=== PATIENT | female | born 1995 | race Caucasian/White ===

== ENCOUNTER 2024-09-06 10:23 | Outpatient (OUT) | payer OTHER, SELFPAY ==
[2024-09-06 11:02] LABS: Hematocrit 38.6 % (36.0-48.0); Hemoglobin 12.8 g/dL (12.0-16.0); Immature Granulocytes Abs Auto 0.04 10^3/uL (0.00-0.03); Immature Granulocytes Pct Auto 0.4 % (0.0-0.5); Lymphocytes Absolute Auto 2.2 10^3/uL (1.2-3.8); Mean Corpuscular HGB Conc 33.2 g/dL (29.9-35.2); Mean Corpuscular Hemoglobin 32.4 pg (26.7-34.0); Mean Corpuscular Volume 97.7 fL (81.0-99.0); Platelet Count 286 10^3/uL (150-450); Red Blood Count 3.95 10^6/uL (4.20-5.40); White Blood Count 10.1 10^3/uL (4.0-11.0)
[2024-09-06 11:13] LABS: Cannabinoid Screen Urine POSITIVE (NEGATIVE); Methamphetamines Screen Urine NEGATIVE (NEGATIVE); Tricyclic Antidepressant Urine NEGATIVE (NEGATIVE)
[2024-09-07 05:07] LABS: Rubella Antibodies, IgG 1.74 index (Immune >0.99)
[2024-09-07 11:08] LABS: Rapid Plasma Reagin, Quant Non Reactive titer (NonRea<1:1)
[2024-09-10 16:11] LABS: Carboxy THC Conf, MS, UR 112 ng/mL (Cutoff=10)
== END 2024-09-06 10:24 | disposition home or self-care (01) ==
LOC: LAB 10:29
PROVIDERS: Visit Provider Obstetrics & Gynecology
DX: Z34.01 Encounter for supervision of normal first pregnancy, first trimester (principal); N92.6 Irregular menstruation, unspecified
CPT/HCPCS: 36415; 80307; 80349; 83036; 86592; 86762; 86803; 86850; 86900; 86901; 87086; 87340; 87389

== ENCOUNTER 2024-11-14 10:32 | Outpatient (OUT) | payer OTHER, SELFPAY ==
--- OUTSIDE RECORDS SUMMARY | 2024-10-03 10:10 | XMS_ITS | Encounter Summary ---
Author Organization [facility] Address [address] [place] [address] Care Team Providers Care Automation Design Engineer Name Role Phone Mariza Fierro MD Primary Care Provider +1- [phone] Reason for Visit * Reason Comments Routine Visit Encounter Details Date Type Department Care Team ([facility] Contact Info) Description 10/03/2024 10:10 AM EDT Routine [facility] So [facility] [address] [place] [address] Jeffrey Gleason DO [address] [facility] [address] Asha So, [facility] 19 weeks gestation of ([facility]); Second trimester ([facility]); Screening, , for anatomic survey ([facility]) Social History Tobacco Use Types Packs/Day Years [...] AM EDT Reason for Appointment: Patient ID: xOana Braga is a 29 y.o. female who [...] nursing note reviewed. Exam conducted with a chart snatcher present. Vitals: There is no height or weight on file to calculate BMI. BP: 120/76 Patient's last menstrual period was 05/23/2024. ASSESSMENT & PLAN ICD-10-CM 1. 19 weeks gestation of ([facility]) Z3A.19 POCT urinalysis dipstick manually resulted 2. Second trimester ([facility]) Z34.92 POCT urinalysis dipstick manually resulted 3. Screening, , for anatomic survey ([facility]) Z36.89 US OB 14+ weeks anatomy scan [...] or undercooked meat, and [facility]. Patient has been consulted regarding any further [...] AM EDT Routine [facility] [address] [place] [id number] Francy Pollack PA [address] [facility] [place] [address] documented as of this encounter Procedures Procedure Name Priority Date/Time Associated Diagnosis Comments POCT URINALYSIS DIPSTICK Routine 10/03/2024 10:19 AM EDT 19 weeks gestation of ([facility]) Second trimester ([facility]) documented in this encounter Results * US [...] II, MD, PHD at 13-Oct-2024 08:19:45 AM [facility] Procedure Note Christian Antunez MD - [...] signed by CHRISTIAN ANTUNEZ II, MD, PHD [id number] 08:19:45 AM [facility] us Jeffrey Gleason DO IM OB [...] Visit Diagnoses Diagnosis 19 weeks gestation of ([facility]) Second trimester ([facility]) state, incidental Screening, , for anatomic survey ([facility]) Encounter for anatomic survey Screening, , for anatomic survey ([facility]) Encounter for anatomic survey documented in this encounter Care Teams Automation Design Engineer Relationship Specialty Start Date End Date Mariza Fierro MD [address] [place] [address] PCP - General Internal Medicine 09/06/24 documented as of this encounter
--- OUTSIDE RECORDS SUMMARY | 2024-11-14 09:30 | XMS_ITS | Encounter Summary ---
Author Organization [facility] Address [address] [place] [address] Care Team Providers Care Business Development Intern Name Role Phone Mariza Fierro MD Primary Care Provider +1- [phone] Reason for Visit * Reason Comments Routine Visit Encounter Details Date Type Department Care Team (Latest Contact Info) Description 11/14/2024 9:30 AM EDT Routine [facility] [address] [facility] [address] Adele Salas, KARTIK [address] [place] [address] Third trimester ([facility]); 25 weeks gestation of ([facility]); Well woman exam with routine gynecological exam; [...] on file documented as of this encounter Plan of Treatment Upcoming Encounters Date Type Department Care Team (Late st Contact Info) Description 12/05/2024 9:50 AM EDT Routine [facility] [address] [facility] [place] [address] Francy Pollack PA [address] [place], [facility] Scheduled Orders Name Type Priority Associated Diagnoses [...] Routine 11/14/2024 10:31 AM EDT Third trimester ([facility]) documented in this encounter Results * POCT [...] this encounter Visit Diagnoses Diagnosis Third trimester ([facility]) state, incidental 25 weeks gestation of ([facility]) Well woman exam with routine gynecological exam Routine gynecological examination Exposure to STD Diabetes mellitus screening Screening for diabetes mellitus Skin infection Unspecified local infection of skin and subcutaneous tissue documented in this encounter Care Teams Business Development Intern Relationship Specialty Start Date End Date Mariza Fierro MD [address] [place] [phone] PCP - General Internal Medicine 09/06/24 documented as of this encounter
--- OUTSIDE RECORDS SUMMARY | 2024-11-14 10:36 | XMS_ITS | Encounter Summary ---
Author Organization [facility] Address [address] [place] [address] Care Team Providers Care Milk Delivery Driver Name Role Phone Mariza Fierro MD Primary Care Provider +1- [phone] Encounter Details Date Type Department Care Team (Late st Contact Info) Description 11/07/2024 Patient Outreach [facility] [address] [place] [address] Francy Ovalle LPN [address] [place] [address] Social History Tobacco Use Types Packs/Day Years [...] on file documented as of this encounter Functional Status * Over the past 2 weeks, how often have you been bothered by any of the following problems? Question Answer Date of Assessment Author Little interest or pleasure in doing things Not at all 11/07/2024 10:35 AM EDT Francy Ovalle LP N Feeling down, depressed, or hopeless Not at all 11/07/2024 10:35 AM EDT Francy Ovalle LP N Patient Health Questionnaire -2 Score 0 11/07/2024 10:35 AM EDT Francy Ovalle LP N documented as of this encounter Progress Notes * Francy Ovalle LPN - 11/07/2024 10:35 AM EDT Initial outreach. Pt agreed to monthly outreach. Pt feels baby moving, Appetite and sleep are adequate. Bowels are regular. Pt denies any depression or difficulty coping at this time. Pt denies any questions, concerns or needs today. Meds reviewed. documented in this encounter Plan of Treatment Upcoming Encounters Date Type Department Care Team (Late st Contact Info) Description 12/05/2024 9:50 AM EDT Routine [facility] [address] [place] [address] Francy Pollack PA [address] [place] [address] documented as of this encounter Visit Diagnoses Not on filedocumented in this encounter Care Teams Milk Delivery Driver Relationship Specialty Start Date End Date Mariza Fierro MD [address] [place] [address] PCP - General Internal Medicine 09/06/24 documented as of this encounter
--- OUTSIDE RECORDS SUMMARY | 2024-11-14 10:36 | XMS_ITS | Encounter Summary ---
Author Organization [facility] Address [address] [facility] [place] [address] Care Team Providers Care Brand Protection Manager Name Role Phone Mariza Fierro MD Primary Care Provider +1- [phone] Encounter Details Date Type Department Care Team (Late Contact Info) Description 11/14/2024 Bamboo flowsheet BETHEL SRINIVASAN [address] [facility] [place] [address] Adele Salas NP [address] [facility] [place] [address] Social History Tobacco Use Types Packs/Day Years [...] Encounters Date Type Department Care Team (Late Contact Info) Description 12/05/2024 9:50 AM EDT Routine [facility] [address] [facility] [place] [address] Francy Pollack PA [address] [facility] [address] [place], [place] [id number] documented as of this encounter Visit Diagnoses Not on filedocumented in this encounter Care Teams Brand Protection Manager Relationship Specialty Start Date End Date Mariza Fierro MD [address] [place] [address] PCP - General Internal Medicine 09/06/24 documented as of this encounter
--- OUTSIDE RECORDS SUMMARY | 2024-11-14 10:36 | XMS_ITS | Data Portability ---
Author Organization [place] - ZOE PRESSLEY MD, PHD, [facility] Address [address] [place] [address] Assessment No assessment recorded. Plan of Treatment Reminders Order Date Submit Date Provider Last Modified By Organization Details Last Modified Time Details Appointments None record ed. Lab rapid strep group A, throat 2018 019 [facility] Main Office, [address] [place], [address], 9 12:48:32 Referral None record ed. Procedures None record ed. Surgeries None record ed. Imaging None record ed. Medication Orders polymy yuri B sulfat e 10,000 unit-t rimeth oprim 1 mg/mL eye drops 2022 023 [facility] [id number], [address] [place], [address], 3 14:06:35 predni sone 20 mg tablet 2018 019 [facility], [address] [place], [address], 9 12:50:19 Patient TargetsNo targets recorded. Patient InstructionsNo instructions recorded. Reason for Referral None Reported. Results Created Date Observation Date Name Description Value Unit Range Abnormal Flag Note LastModifiedBy Organization Detail LastModifiedTime 06/08/19 19 06/07/2018 cultu re, throa t source Test not perfo rmed. Trans port devic e is not accep table for test reque sted. RECEI МАРИНА VCM VIRAL TRANS PORT. No colle ction date was recei марина. We have used the date the speci men was recei марина by [facility] as the colle ction date. If this is incor rect, pleas e conta ct us at [phone]. Not Available [facility] [address], [place], [address], 06/07/2018 01:37:55 06/06/19 19 06/05/2018 rapid strep group A, throa t Strep negati ve Not Available Main Office [address] [place], [address], 06/05/2018 12:09:57 Result Notes None recorded. Problems No Known Problems Medical Equipment None Reported. Allergies No known drug allergies Medications Name Sig Start Date Stop Date Status Note LastModified by Organization Details LastModified Time prednisone 20 mg tablet Take 2 tablets every day by oral route as directed for 3 days. 2018 active Not Available Not Available Not Avai lable polymyxin B sulfate 10,000 unit-trimeth oprim 1 mg/mL eye drops Instill 1 drop 4 times a day by ophthalmic route as directed for 10 days. active Not Available Not Available No t Available Vitals Date Recorded Body height Heart rate Body temperature Body mass index (BMI) Body weight Oxygen saturation Oxygen saturation in Arterial blood by Pulse oximetry Systolic And Diastolic Provider Name and Address Organization Details Last Updated DateTime 3 165.1 cm 97 /min 97.9 [degF] 22.5 kg/m2 54787.9 7 g 99 % 99 % 128/75 mm[Hg] Zoe coughlin MD [address] [place], [address], [facility] ZOE GONZALES MD, PHD 3 16:40:22 Date Recorded Body height Heart rate Respiratory rate Body temperature Body mass index (BMI) Body weight Oxygen saturation Oxygen saturation in Arterial blood by Pulse oximetry Systolic And Diastolic Provider Name and Address Organization Details Last Updated DateTime 9 167.64 cm 118 /min 16 /min 98.8 [degF] 23.6 kg/m2 57435.4 9 g 98 % 98 % 116/82 mm[Hg] elias spicer [place] - ZOE GOZNALES MD, PHD 9 11:58:57 Social History Question Answer Notes LastModified by Organizat ion Details LastModified Time Tobacco Smoking Status Never Smoker Not Available [facility] 12/24/2019 03:54:38 Are You Blind Or Do You Have Difficulty Seeing? No Information n ot available 04/22/2023 What Is Your Level Of Caffeine Consumption? None Information not available 04/22/2023 In The 14 Days Before Symptom Onset, Have You Had Close Contact With A Laboratory-confirm ed COVID-19 While That Case Was Ill? No Information n ot available 04/22/2023 In The 14 Days Before Symptom Onset, Have You Had Close Contact With A Person Who Is Under Investigation For COVID-19 While That Person Was Ill? No Information not available 04/22/2023 Have You Been To An Area Known To Be High Risk For COVID-19? No Information not available 04/22/2023 Are You Deaf Or Do You Have Serious Difficulty Hearing? No Information not available 04/22/2023 What Type Of Diet Are You Following? REGULAR Information n ot available 04/22/2023 Have You Processed Blood Or Body Fluids From An Ebola Virus Disease Patient Without Appropriate PPE? No Information not available 04/22/2023 Do You Reside In Or Have You Traveled To An Area Where Ebola Virus Transmission Is Active? No Information not available 04/22/2023 What Is The Highest Grade Or Level Of School You Have Completed Or The Highest Degree You Have Received? CG81055-7 Information not available 04/22/2023 Have There Been Any Changes To Your Family Or Social Situation? No Information no t available 04/22/2023 What Is The Fluoride Status Of Your Home? Fluoridated Information not available 04/22/2023 Have You Recently Or Are You Planning To Travel To An Area With Zika Virus? No Information not available 04/22/2023 What Was The Date Of Your Most Recent Tobacco Screening? 05/16/2022 Information not available 04/22/2023 Do You Have Any Pets? No Information not available 04/22/2023 Do You Have Smoke And Carbon Monoxide Detectors In Your Home? Yes Information not available 04/22/2023 Are You Passively Exposed To Smoke? No Information no t available 04/22/2023 Do You Have Difficulty Walking Or Climbing Stairs? No Information not available 04/22/2023 Sex: Unknown Functional Status Question Answer Note LastModified by Organizat ion Details LastModified Time Do you use any illicit or recreational drugs? No Information not available 04/22/2023 Do you or have you ever used any other forms of tobacco or nicotine? No Information not available 04/22/2023 Do you have access to reliable transportation? No Information not available 04/22/2023 Are you able to walk independently without assistance or assistive devices? YESWOREST Information not available 04/22/2023 Do you have difficulty doing errands alone? No Information not available 04/22/2023 Are you able to care for yourself independently? Yes Information not available 04/22/2023 Do you have difficulty dressing, bathing, grooming, or toileting? No Information not available 04/22/2023 Mental Status Question Answer Note LastModified by Organizat ion Details LastModified Time Do you feel stressed (tense, restless, nervous, or anxious, or unable to sleep at night)? QJ3994-6 Information not available 04/22/2023 Do you have difficulty concentrating, remembering or making decisions? No Information no t available 04/22/2023 Family History Relationship Description Onset Age of this Age Resolved Age Notes LastModified by Organization Details LastModified Time Father No current problems or disability [email or web address] Not available 06/05 11:59:49 Mother No current problems or disability [email or web address] Not available 06/05 11:59:49 Medical History No medical history recorded. Gynecological HistoryNo gynecological history recorded. Obstetrics History GPAL:G 0 P 0 0 0 0 Past Encounters Encounter ID Performer Location Encounter Start Date Encounter Closed Date Diagnosis/Indication Diagnosis SNOMED-CT Code Diagnosis ICD10 Code Diagnosis IMO Codes Diagnosis Note [id number] Zoe Chamberlain rn, MD Main Office [address] [place] [address] 06/05/2018 11:40:21 06/05/2018 12:28:54 Acute pharyngitis 361973156 J02.9 Cervical lymphadenopathy 844825212 R59.0 Acute tonsillitis 980178 08 J03.90 Tachycardia 2654150 R00. 0 [id number] Zoe Chamberlain rn, MD Main Office [address] [place] [address] 05/16/2022 13:38:55 05/16/2022 14:11:53 Nasal congestion 49212702 R09.81 Acute conjunctivitis 537 21565 H10.33 Sinus headache 5943454 R 51.9 Health Concerns Section Related Observation LastModified by Organization Detai ls LastModified Time None Recorded Concern Status LastModified by Organization Details LastModified Time None Recorded Advance Directives Directive None Recorded Payers Insurance Date Sequence Insurance Name Policy Number Policy Landeros Covered Member ID Landeros Member ID Guarantor Name 04/24/2023 1 [facility] - DOS ON OR AFTER 2022 (MEDICAID REPLACEMENT - HMO) [id number] Oxana Braga [id number] Justice Braga 05/16/2022 1 [facility] ([id number]) [id number] Oxana Braga [id number] Justice Braga Notes Date Note Type Note Provider Name and Address Organization Details Recorded Time 06/05/2018 text/html Sore ThroatRepor mary by PatientPatient is here today for a complaint of possible infected tonsils. She states her throat has hurt times three days. She states she has gargled with peroxide and with warm salt water. She states neither of these has helped. Patient presents to the office as a new patient for evaluation of a sore throat and edema with large tonsils without fever or nausea or vomiting. Patient states that it starts over the weekend and has continued to worsen. She tried to eat toast this morning and could not get it down. She has gargled with peroxide and warm salt water..No associated nausea and vomiting. Zoe Gonzales MD [address] [place], [address], [facility] ZOE GONZALES MD, PHD 06/06/2018 14:45:12 05/16/2022 text/html Red EyeReported by Patient Patient presents to the office as a new patient for evaluation of nasal congestion and bilateral red eyes with purulent discharge. She has not had any fevers, LH, dizziness, light sensitivity, visual changes, muscle weakness, SOB, CP, pressure, palpitations or edema. She has had a sinus headache. She has a negative PMH and surgical history. She has only been hospitalized for child . She has a regular diet. Zoe Gonzales MD [address] [place], [address], [facility] ZOE GONZALES MD, PHD 04/22/2023 13:57:57 OBGyn Episode No OBEpisode recorded.
--- OUTSIDE RECORDS SUMMARY | 2024-11-14 10:36 | XMS_ITS ---
Author Organization [facility] Address [address] [place] [address] Care Team Providers Care Lining Ironer Name Role Phone Mariza Fierro MD Primary Care Provider +1- [phone] [employer] [facility] [employer] ([facility]) Status:Enrolled (Active) Start date:11/04/2024 Enrollment date:11/07/2024 Enrollment reason:Identified by Health Plan Case Team Name Relationship Phone Francy Ovalle LPN(Responsible Staff) Licensed Prac tical Nurse [phone] Continued Care and Services Coordination
--- OUTSIDE RECORDS SUMMARY | 2024-11-14 10:36 | XMS_ITS | Encounter Summary ---
Author Organization [facility] Address [address] [place] [address] Care Team Providers Care Nurses Assistant Name Role Phone Mariza Fierro MD Primary Care Provider +1- [phone] Encounter Details Date Type Department Care Team (Late st Contact Info) Description 11/06/2024 Abstract [facility] [address] [place] [address] Francy Ovalle LPN [address] [place] [address] Social History Tobacco Use Types Packs/Day Years [...] LP N documented as of this encounter Plan of Treatment Upcoming Encounters Date Type Department Care Team (Late st Contact Info) Description 12/05/2024 9:50 AM EDT Routine BET[facility] SRINIVASAN [address] [place] [address] Francy Pollack PA [address] [facility] [place] [address] documented as of this encounter Visit Diagnoses Not on filedocumented in this encounter Care Teams Nurses Assistant Relationship Specialty Start Date End Date Mariza Fierro MD [address] [place] [address] PCP - General Internal Medicine 09/06/24 documented as of this encounter
--- OUTSIDE RECORDS SUMMARY | 2024-11-14 10:36 | XMS_ITS | Encounter Summary ---
Author Organization [facility] Address [address] [place] [address] Care Team Providers Care Speech Pathology Assistant Name Role Phone Mariza Fierro MD Primary Care Provider +1- [phone] Encounter Details Date Type Department Care Team (Latest Contact Info) Description 11/14/2024 Travel Social History Tobacco Use Types Packs/Day Years [...] Description 12/05/2024 9:50 AM EDT Routine [facility] [address] [facility] [place] [address] Francy Pollack PA [address] [place], [facility] documented as of this encounter Visit Diagnoses Not on filedocumented in this encounter Care Teams Speech Pathology Assistant Relationship Specialty Start Date End Date Mariza Fierro MD [address] [place] [address] PCP - General Internal Medicine 09/06/24 documented as of this encounter
--- OUTSIDE RECORDS SUMMARY | 2024-11-14 10:36 | XMS_ITS | Patient Health Record ---
Author Organization [facility] Address [address], [place] [address] Care Team Providers Care Wearing Apparel Shaker Name Role Phone Sylvie Turcios Unavailable [phone] Allergies No Known Allergies Reason For Referral No Information Medications Medication SIG (Take, Route, Frequency, Duration) Notes Start Date End Date Status Polymyxin B-Trimethoprim 80342-9.1 UNIT/ML Ophthalmic; Duration: 25 Days Not-Taking Social History Sex Assigned At : Social History Observation Description Sex Assigned At Female Problems Problem Type SNOMED Code ICD Code Onset Dates Problem Status W/U Status Risk Notes Problem Acute non-suppurative otitis media - serous (690633602) ACUTE SEROUS OTITIS MEDIA (H65.00) 2006 Active confirmed Problem Acute streptococcal pharyngitis (5909764038) Acute streptococcal pharyngitis (J02.0) 2007 Active confirmed Description:St reptococcal sore throat Problem Encounter for contraceptive management (V25.) (V25) 2006 Active confirmed Problem Bleeding unrelated to menstrual cycle (55444572) Bleeding unrelated to menstrual cycle (N92.1) 2008 Active confirmed Description:Me trorrhagia Problem Asthma (111071286) Asthma (J45.909) 2007 Active confirmed Problem Allergic rhinitis (42325657) Allergic rhinitis (J30.9) 2005 Active confirmed Problem Backache (997453390) Backache (724.5) (724.5) 2009 Active confirmed Problem Group health survey examination (Z02.89) 2009 Active confirmed Description:He alth examination of defined subpopulation Problem Acute bronchitis (disorder) (74536568) Bronchitis, acute (466.0) (466.0) 2006 Active confirmed Problem Menstrual disorder (447577648) Disorder of menstruation/ab normal bleeding (626.8) (626.8) 2006 Active confirmed Problem Gastroesophageal reflux disease (872925253) Reflux, esophageal (530.81) (530.81) 2005 Active confirmed Story:ASSESSME NT: controlled, Problem Cough (68517976) Cough (R05.9) 2007 Active confirmed Plan Of Treatment No Information Insurance Providers Payer Name Payer Address Payer Phone Subscriber Number Group Number Insured Name Patient Relationship to Insured Coverage Start Date Coverage End Date [employer] [facility] [address] [address] [place] [address] [id number] [facility] Oxana Braga Self - patient is the insured 2 DMedicaid [employer] after [place] [employer] [address] [place], [place] [id number] Oxana Braga Self - patient is the insured 2 Medical (General) History Medical History History ICD Code CHILDHOOD DISEASES/ILLNESSES : Positive history for chicken pox, ProblemStatus: Active, , MEDICAL: Asthma, ProblemStatus: Active, , MEDICAL: Bronchitis, ProblemStatus: Acti ve, , MEDICAL: Gastroesophageal reflux disease , ProblemStatus: Active, ,
--- OUTSIDE RECORDS SUMMARY | 2024-11-14 10:36 | XMS_ITS | Clinical Summary ---
Author Organization [facility] Healthcare Address [address] [place] [address] Care Team Providers Care Glass Cleaning Machine Tender Name Role Phone Mariza Fierro MD Primary Care Provider +1- [phone] Allergies No known active allergies Medications Vit-Fe Fumarate-FA ( VITAMIN PO) Take by mouth Active cephalexin (Keflex) 500 MG capsuleIndicati ons:Skin infection Take 1 capsule (500 mg) by mouth in the morning and 1 capsule (500 mg) before bedtime. Do all this for 10 days. 20 capsule 11/14/2024 Active Encounters Date Type Department Care Team Description 11/14/2024 9:30 [place] [address] Adele Salas NP Third trimester ([facility]); 25 weeks gestation of ([facility]); Well woman exam with routine gynecological exam; Exposure to STD; Diabetes mellitus screening; Skin infection 11/14/2024 Bamboo flowsheet BETHEL SRINIVASAN [address] [place] [address] Adele Salas NP 11/14/2024 Travel 11/07/2024 Patient Outreach [facility] [address] [place] [address] Francy Ovalle LPN 11/06/2024 Abstract [facility] [address] [place] [address] Francy Ovalle LPN 10/10/2024 8:30 AM EDT [place] [address] Screening, , for anatomic survey ([facility]) 10/03/2024 10:10 [place] [address] Jeffrey Gleason DO 19 weeks gestation of ([facility]); Second trimester ([facility]); Screening, , for anatomic survey ([facility]) 10/03/2024 [place] [address] Jeffrey Gleason DO 09/06/2024 10:00 AM ED[place] [address] GA: 15w1d 09/06/2024 9:30 AM EDT [place] [address] Missed menses 09/06/2024 [place] [address] Jeffrey Gleason DO 09/06/2024 Clinisync Result Encounter [facility] External Department Unsolicited Jeffrey Gleason DO from Last 3 Months Social History Tobacco Use Types Packs/Day Years [...] on file Sexual Orientation Not on file Last Filed Vital Signs Vital Sign Reading Time Taken Comments Blood Pressure 120/76 10/03/2024 10:12 AM EDT Pulse - - Temperature - - Respiratory Rate - - Oxygen Saturation - - Inhaled Oxygen Concentration - - Weight 66.2 kg (146 lb) 10/03/2024 10:12 AM EDT Height - - Body Mass Index - - Plan of Treatment Upcoming Encounters Date Type Department Care Team (Late st Contact Info) Description 12/05/2024 9:50 AM EDT Routine [facility] [address] [place] [address] Francy Pollack PA [address] [place] [address] Procedures Procedure Name Priority Date/Time Associated Diagnosis Comments POCT URINALYSIS DIPSTICK Routine 11/14/2024 10:31 AM EDT Third trimester ([facility]) US OB 14+ WEEKS ANATOMY SCAN Routine 10/10/2024 9:38 AM EDT Screening, , for anatomic survey ([facility]) CULTURE, URINE, ROUTINE Routine 10/07/2024 8:14 AM EDT Missed menses POCT URINALYSIS DIPSTICK Routine 10/03/2024 10:19 AM EDT 19 weeks gestation of ([facility]) Second trimester ([facility]) HBSAG SCREEN Routine 09/06/2024 10:40 AM EDT RAPID PLASMA REAGIN, QUANT Routine 09/06/2024 10:40 AM EDT HIV AB/P24 AG WITH REFLEX Routine 09/06/2024 10:40 AM EDT HCV ANTIBODY RFX TO QUANT PCR Routine 09/06/2024 10:40 AM EDT ALL RUBELLA IGG AB Routine 09/06/2024 10 :40 AM EDT ALL TYPE AND SCREEN Routine 09/06/2024 1 0:40 AM EDT ALL CBC WITH AUTO DIFF Routine 09/06/2024 10:40 AM EDT MLR HEMOGLOBIN A1C Routine 09/06/2024 10 :40 AM EDT CANNABINOID CONF, MS, UR Routine 09/06/2024 10:33 AM EDT TBH DRUG SCREEN RAPID (URINE) Routine 09/06/2024 10:33 AM EDT POCT URINALYSIS DIPSTICK Routine 09/06/2024 9:52 AM EDT Missed menses POCT , URINE Routine 09/06/2024 9:52 AM EDT Missed menses US OB LIMITED 1+ FETUSES Routine 09/06/2024 9:46 AM EDT Missed menses from Last 3 Months Results * POCT urinalysis dipstick manually resulted (11/14/2024 10:31 AM EDT) Only the most recent of3 resultswithin the time period is included. Color, UA Yellow Clarity, UA Clear Glucose, [...] OF CARE TEST ENTER/EDIT ORDERABLES Final Result * US OB 14+ weeks anatomy scan [...] II, MD, PHD at 13-Oct-2024 08:19:45 AM [facility] Procedure Note Christian Antunez MD - [...] signed by CHRISTIAN ANTUNEZ II, MD, PHD 08:19:45 AM [facility] us Jeffrey Victorino DO IMG OB US PROCEDURES Final Resul t * Urine culture (10/07/2024 8:14 AM EDT) Urine Urine specimen obtained by clean catch procedure / Unknown [employer] [facility] MICROBIOLOGY - GENERAL ORDER ROSS Final Result Performing Organization Address City/[facility]/ZIP Co de Phone Number EXTERNAL LAB * HBSAG SCREEN (09/06/2024 10:40 AM EDT) Pathologist [facility] HBSAG SCREEN Negative Negative [facility] Comment: Performed at: [address] [id number] Soaping Department Supervisor: Raheel West PhD, Phone: [phone] 09/06/2024 10:4 0 AM EDT 09/06/2024 10:43 AM EDT Narrative [facility] - 09/07/2024 11:08 AM EDT [employer] DO LAB BLOOD ORDERABLES Final Resul t Performing Organization Address City/[facility] Co de Phone Number [facility] * RAPID PLASMA REAGIN, QUANT (09/06/2024 10:40 AM EDT) Pathologist [facility] RAPID PLASMA REAGIN, QUANT Non Reactive NonRea<1: 1 titer [facility] Comment: Please Note: This test does not meet current guidelines for screening and diagnosis of syphilis. This test is intended for following treatment response in patients being treated for syphilis infection. To screen for syphilis infection, a reflex cascade that includes both RPR and a treponema-specific assay should be utilized, such as Treponema pallidum (Syphilis) Screening [place] (147324) or Rapid Plasma Reagin (RPR) Test With Reflex to Quantitative RPR and Confirmatory Treponema pallidum Antibodies (317925). Performed at: [address] [id number] Soaping Department Supervisor: Raheel West PhD, Phone: [phone] 09/06/2024 10:4 0 AM EDT 09/06/2024 10:43 AM EDT Narrative [facility] - 09/07/2024 11:08 AM EDT RENTISHy Victorino DO LAB BLOOD ORDERABLES Final Resul t Performing Organization Address [facility] Co de Phone Number [facility] * HIV AB/P24 AG WITH REFLEX (09/06/2024 10:40 AM EDT) Pathologist [facility] HIV AB/P24 AG SCREEN Non Reactive Non Reactive [facility] Comment: HIV-1/HIV-2 antibodies and HIV-1 p24 antigen were NOT detected. There is no laboratory evidence of HIV infection. HIV Negative Performed at: [facility] [address] [id number] Soaping Department Supervisor: Raheel West PhD, Phone: [phone] 09/06/2024 10:4 0 AM EDT 09/06/2024 10:43 AM EDT Narrative [facility] - 09/07/2024 5:07 AM EDT [employer] DO LAB BLOOD ORDERABLES Final Resul t Performing Organization Address [facility] de Phone Number [facility] * HCV ANTIBODY RFX TO QUANT PCR (09/06/2024 10:40 AM EDT) [facility] HCV AB Non Reactive Non Reactive [facility] INTERPRETATION: Comment . [facility] Comment: Not infected with HCV unless early or acute infection is suspected (which may be delayed in an immunocompromised individual), or other evidence exists to indicate HCV infection. 09/06/2024 10:4 0 AM EDT 09/06/2024 10:43 AM EDT Narrative [facility] - 09/07/2024 5:07 AM EDT [employer] DO LAB BLOOD ORDERABLES Final Resul t Performing Organization Address [facility] de Phone Number [facility] * MLR HEMOGLOBIN A1C (09/06/2024 10:40 AM EDT) [facility] GLYCOHEMOGLOBIN A1C 5.1 4.5 - 6.2 % [facility] Comment: ADA RECOMMENDED LIMIT 4.0 - 6.0 ADA THERAPEUTIC TARGET < 7.0 ACTION SUGGESTED > 7.0 ESTIMATED AVERAGE GLUCOSE 100 mg/dL TB 09/06/2024 10:4 0 AM EDT 09/06/2024 10:43 AM EDT Narrative [facility] - 09/06/2024 10:56 AM EDT Jeffrey Victorino DO CLINISYNC Final Result Performing Organization Address City/[facility]/ZIP Co de Phone Number [facility] * ALL TYPE AND SCREEN (09/06/2024 10:40 AM EDT) Pathologist [facility] BLOOD TYPE O Positive TB ANTIBODY SCREEN NEGATIVE TB 09/06/2024 10:4 0 AM EDT 09/06/2024 10:43 AM EDT Narrative [facility] - 09/06/2024 11:56 AM EDT [facility] , Jeffrey Victorino DO CLINISYNC Final Result Performing Organization Address [facility] Co de Phone Number [facility] * ALL RUBELLA IGG AB (09/06/2024 10:40 AM EDT) Pathologist [facility] RUBELLA ANTIBODIES, IGG 1.74 Immune >0.99 index TB Comment: Non-immune <0.90 Equivocal 0.90 - 0.99 Immune >0.99 Performed at: [address] [id number] Soaping Department Supervisor: Raheel West PhD, Phone: [phone] 09/06/2024 10:4 0 AM EDT 09/06/2024 10:43 AM EDT Narrative [facility] - 09/07/2024 5:07 AM EDT Jeffrey Victorino DO CLINIS[facility]NC Final Result Performing Organization Address [facility]/ZIP Co de Phone Number [facility] * (ABNORMAL) ALL CBC WITH AUTO DIFF (09/06/2024 10:40 AM EDT) Pathologist [facility] WBC 10.1 4.0 - 11.0 10 3/uL TBH TBH RBC 3.95(L) 4.20 - 5.40 10 6/uL TBH TBH HGB 12.8 12.0 - 16.0 g/dL TBH TBH HCT 38.6 36.0 - 48.0 % TBH TBH MCV 97.7 81.0 - 99.0 fL TBH TBH MCH 32.4 26.7 - 34.0 pg TBH TBH MCHC 33.2 29.9 - 35.2 g/dL TBH TBH RDW 12.4 11.0 - 15.0 % TBH TBH PLT 286 150 - 450 10 3/uL TBH TBH MPV 9.3(L) 9.5 - 13.5 fL TBH NEUTROPHILS PERCENT AUTO 67.5 43.0 - 75.0 % TBH LYMPHOCYTES PERCENT AUTO 21.5 20.5 - 60.0 % TBH MONOCYTES PERCENT AUTO 9.3 1.7 - 12.0 % TBH TBH EO % 0.9 0.9 - 7.0 % TBH BASOPHILS PERCENT AUTO 0.4 0.2 - 2.0 % TBH IMMATURE GRANULOCYTES PCT AUTO 0.4 0.0 - 0.5 % TBH NEUTROPHILS ABSOLUTE AUTO 6.8(H) 1.4 - 6.5 10 3/uL TBH LYMPHOCYTES ABSOLUTE AUTO 2.2 1.2 - 3.8 10 3/uL TBH MONOCYTES ABSOLUTE AUTO 0.9(H) 0.3 - 0.8 10 3/uL TBH TBH EO # 0.1 0.0 - 0.7 10 3/uL TBH BASOPHILS ABSOLUTE AUTO 0.0 0.0 - 0.1 10 3/uL TBH IMMATURE GRANULOCYTES ABS AUTO 0.04(H) 0.00 - 0.03 10 3/uL TBH 09/06/2024 10:4 0 AM EDT 09/06/2024 10:43 AM EDT Narrative [facility] - 09/06/2024 11:03 AM EDT us Jeffrey Victorino DO CLINISYNC Final Result [facility] * (ABNORMAL) TB DRUG SCREEN RAPID (URINE) (09/06/2024 10:33 AM EDT) CANNABINOID SCREEN URINE POSITIVE(A) NEGATIVE TBH PHENCYCLIDINE SCREEN URINE NEGATIVE NEGATIVE TBH COCAINE SCREEN URINE NEGATIVE NEGATIVE TBH METHAMPHETAMINES SCREEN URINE NEGATIVE NEGATIVE TBH OPIATE SCREEN URINE NEGATIVE NEGATIVE TBH AMPHETAMINE SCREEN URINE NEGATIVE NEGATIVE TBH BENZODIAZEPINES SCREEN URINE NEGATIVE NEGATIVE TBH TRICYCLIC ANTIDEPRESSANT URINE NEGATIVE NEGATIVE TBH METHADONE SCREEN URINE NEGATIVE NEGATIVE TBH BARBITURATES SCREEN URINE NEGATIVE NEGATIVE TBH OXYCODONE SCREEN URINE NEGATIVE NEGATIVE TBH BUPRENORPHINE SCREEN URINE NEGATIVE NEGATIVE TBH Comment: DRUG CLASS TEST SYSTEM CUT-OFF CONCENTRATIONS ARE FOLLOWS: AMP (Amphetamine): 500 ng/mL BAR (Barbiturates): 200 ng/mL BZO (Benzodiazepines): 150 ng/mL BUP (Buprenorphine): 10 ng/mL STANLEY (Cocaine): 150 ng/mL mAMP (Methamphetamine): 500 ng/mL MTD (Methadone): 200 ng/mL OPI (Opiates): 100 ng/mL OXY (Oxycodone): 100 ng/mL PCP (Phencyclidine): 25 ng/mL THC (Cannabinoids): 50 ng/mL TCA (Trycyclic Antidepressants): 300 ng/mL 09/06/2024 10:3 3 AM EDT 09/06/2024 10:42 AM EDT Narrative [facility] - 09/06/2024 11:13 AM EDT Jeffrey Victorino DO CLINISYNC Final Result [facility] * (ABNORMAL) CANNABINOID CONF, MS, UR (09/06/2024 10:33 AM EDT) CANNABINOID Positive(A ) . TBH CARBOXY THC CONF, MS, UR 112 Cutoff=10 ng/mL TB Comment: Performed at: [facility] [address] [place], [place] [id number] Soaping Department Supervisor: María Myers PhD, Phone: [phone] 09/06/2024 10:3 3 AM EDT 09/06/2024 11:13 AM EDT Narrative [facility] - 09/10/2024 4:11 PM EDT us Jeffrey Victorino DO LAB BLOOD ORDERABLES Final Resul t [facility] * (ABNORMAL) POCT , urine manually resulted (09/06/2024 9:52 AM EDT) Preg Test, Ur Positive Negative Urine 09/06/2024 9:52 AM EDT us Jeffrey Victorino DO POINT OF CARE TEST ENTER/EDIT OR DERABLES Final Result * US OB limited 1+ fetuses (09/06/2024 9:46 AM EDT) Anatomical Region Laterality Modality Body Ultrasound 09/10/2024 10:5 9 AM EDT Impressions 09/10/2024 11:25 AM EDT Single, live intrauterine , current sonographic age of 14 weeks and 6 days, with an estimated date of delivery of March 01, 2025 * Estimated Weight (g) by Percentile is based upon an accurate estimated age based on last menstrual period. TRANSCRIBED BY: ELECTRONICALLY SIGNED BY: Jason Esquivel MD Narrative 09/10/2024 11:25 AM EDT FINDINGS: A single, live intrauterine is present with normal cardiac rate of 149 beats per minute. Normal activity and amniotic fluid volume. Morphology is grossly normal. [place] rump length, 9.3 cm, 15 weeks, 2 day. The cervix is long and closed The current sonographic age is 14 weeks and 6 days, based on the following measurements: BPD 2.6cm (14 weeks, 4 days) Head Circumference 10.3cm ( 14 weeks, 6 days) Abdominal Circumference 9.0cm ( 15 weeks, 1 days) Femur Length 1.5cm ( 14weeks, 3 days) Weight (g) by Percentile 18.9 % * These measurements result in an estimated date of delivery of March 01, 2025. The current estimated weight is 107 grams ( pound, 4 ounces). Procedure Note Jason Esquivel MD - 09/10/2024 FINDINGS: A single, live intrauterine is present with normal cardiacrate of 149 beats per minute. Normal activity and amniotic fluidvolume. Morphology is grossly normal. [place] rump length, 9.3 cm, 15weeks, 2 day. The cervix is long and closed The current sonographic age is14 weeks and 6 days, based on the following measurements: BPD 2.6cm (14 weeks, 4 days) Head Circumference 10.3cm ( 14 weeks, 6 days) Abdominal Circumference 9.0cm ( 15 weeks, 1 days) Femur Length 1.5cm ( 14weeks, 3 days) Weight (g) by Percentile 18.9 % * These measurements result in an estimated date of delivery of February. The current estimated weight is 107 grams ( pound, 4ounces). IMPRESSION: Single, live intrauterine , current sonographic age of 14 weeksand 6 days, with an estimated date of delivery of March 01, 2025 * Estimated Weight (g) by Percentile is based upon an accurateestimated age based on last menstrual period. TRANSCRIBED BY: ELECTRONICALLY SIGNED BY: Jason Esquivel MD us Jeffrey Gleason DO IMG OB US PROCEDURES Final Resul t from Last 3 Months Insurance [employer] Care Teams Glass Cleaning Machine Tender Relationship Specialty Start Date End Date Mariza Fierro MD [address] [place] [address] PCP - General Internal Medicine 09/06/24
--- OUTSIDE RECORDS SUMMARY | 2024-11-14 10:36 | XMS_ITS | Encounter Summary ---
Author Organization [facility] Address [address] [place] [address] Care Team Providers Care Knuckle Strap Sewer Name Role Phone Mariza Fierro MD Primary Care Provider +1- [phone] Encounter Details Date Type Department Care Team (Late Contact Info) Description 09/06/2024 Abstract [facility] [address] [place] [address] Jeffrey Gleason DO [address] [place], [facility] Social History Tobacco Use Types Packs/Day Years Used Date Smoking Tobacco: Never Assessed Estimated Date of Delivery Comme nts Yes [...] 9:50 AM EDT Routine BETHEL SRINIVAS[facility] [address] [place] [address] Francy Pollack PA [address] [place], [facility]11 documented as of this encounter Visit Diagnoses Not on filedocumented in this encounter Care Teams Knuckle Strap Sewer Relationship Specialty Start Date End Date Mariza Fierro MD [address] [place] [id number] PCP - General Internal Medicine 09/06/24 documented as of this encounter
[2024-11-14 10:46] LABS: Hematocrit 33.9 % (36.0-48.0); Hemoglobin 11.3 g/dL (12.0-16.0); Immature Granulocytes Abs Auto 0.04 10^3/uL (0.00-0.03); Immature Granulocytes Pct Auto 0.4 % (0.0-0.5); Lymphocytes Absolute Auto 1.7 10^3/uL (1.2-3.8); Mean Corpuscular HGB Conc 33.3 g/dL (29.9-35.2); Mean Corpuscular Hemoglobin 32.7 pg (26.7-34.0); Mean Corpuscular Volume 98.0 fL (81.0-99.0); Platelet Count 247 10^3/uL (150-450); Red Blood Count 3.46 10^6/uL (4.20-5.40); White Blood Count 10.1 10^3/uL (4.0-11.0)
== END 2024-11-14 10:33 | disposition home or self-care (01) ==
LOC: LAB 10:33
PROVIDERS: Visit Provider Nurse Practitioner Family
DX: Z13.1 Encounter for screening for diabetes mellitus (principal)
CPT/HCPCS: 36415; 83036; 85025; 87624; 88175

== ENCOUNTER 2024-11-14 19:21 | Outpatient (REF) | payer OTHER, SELFPAY ==
--- OUTSIDE RECORDS SUMMARY | 2024-10-03 10:10 | XMS_ITS | Encounter Summary ---
Author Organization [facility] Address [address] [place] [address] Care Team Providers Care Cmm Operator Name Role Phone Mariza Fierro MD Primary Care Provider +1- [phone] Reason for Visit * Reason Comments Routine Visit Encounter Details Date Type Department Care Team ([facility] Contact Info) Description 10/03/2024 10:10 AM EDT Routine [facility] [address] [place] [address] Jeffrey Gleason DO [address] [facility] [address] Asha So, [facility] 19 weeks gestation of ([facility]); Second trimester ([facility]); Screening, , for anatomic survey ([facility]) Social History Tobacco Use Types Packs/Day Years Used Date Smoking Tobacco: Never Assessed PHQ-2 Answer Date Recorded Patient Health Questionnaire-2 Score 0 11/07/2024 Estimated Date of Delivery Comme nts Yes 02/27/2025 Based on last me nstrual period of 05/23/2024 Sex and Gender Information Value Date Recorded Sex Assigned at Not on file Legal Sex Female 7:32 PM EDT Gender Identity Not on file Sexual Orientation Not on file documented as of this encounter Last Filed Vital Signs Vital Sign Reading Time Taken Comments Blood Pressure 120/76 10/03/2024 10:12 AM EDT Pulse - - Temperature - - Respiratory Rate - - Oxygen Saturation - - Inhaled Oxygen Concentration - - Weight 66.2 kg (146 lb) 10/03/2024 10:12 AM EDT Height - - Body Mass Index - - documented in this encounter Progress Notes * Rosalinda Mcclure LPN - 10/03/2024 10:10 AM EDT Reason for Appointment: Patient ID: Oxana Braga is a 29 y.o. female who presents for Routine Visit Patient presents today for Return OB appointment. MEDICATIONS No current outpatient medications ALLERGIES No Known Allergies PROBLEMS Active Ambulatory Problems Diagnosis Date Noted No Active Ambulatory Problems Resolved Ambulatory Problems Diagnosis Date Noted No Resolved Ambulatory Problems Past Medical History: Diagnosis Date History of miscarriage 10/2018 HISTORY PAST MEDICAL HISTORY SOCIAL HISTORY Past Medical History: Diagnosis Date History of miscarriage 10/2018 Social History Tobacco Use Smoking status: Not on file Smokeless tobacco: Not on file Substance Use Topics Alcohol use: Not on file Drug use: Not on file FAMILY HISTORY No family history on file. SURGICAL HISTORY History reviewed. No pertinent surgical history. REVIEW OF SYSTEMS Review of Systems: Review of Systems Constitutional: Negative. HENT: Negative. Eyes: Negative. Respiratory: Negative. Cardiovascular: Negative. Gastrointestinal: Negative. Genitourinary: Negative. Musculoskeletal: Negative. Skin: Negative. Neurological: Negative. All other systems reviewed and are negative. Hematological: Negative. Endocrine: Negative. Allergic/Immunologic: Negative. OBJECTIVE Objective: Physical Exam Constitutional: Appearance: Normal appearance. She is well-developed. Cardiovascular: Rate and Rhythm: Normal rate and regular rhythm. Pulmonary: Effort: Pulmonary effort is normal. Breath sounds: Normal breath sounds. Abdominal: General: Bowel sounds are normal. There is no distension. Palpations: Abdomen is soft. Tenderness: There is no abdominal tenderness. There is no guarding or rebound. Musculoskeletal: General: No swelling. Normal range of motion. Right lower leg: No edema. Left lower leg: No edema. Neurological: Mental Status: She is alert and oriented to person, place, and time. Skin: General: Skin is warm and dry. Psychiatric: Mood and Affect: Mood normal. Behavior: Behavior normal. Vitals and nursing note reviewed. Exam conducted with a whiskey filterer present. Vitals: There is no height or weight on file to calculate BMI. BP: 120/76 Patient's last menstrual period was 05/23/2024. ASSESSMENT & PLAN ICD-10-CM 1. 19 weeks gestation of ([facility]) Z3A.19 POCT urinalysis dipstick manually resulted 2. Second trimester ([facility]) Z34.92 POCT urinalysis dipstick manually resulted 3. Screening, , for anatomic survey ([facility]) Z36.89 US OB 14+ weeks anatomy scan New OB: Patient presents today for 1st time obstetrics appointment with provider. Patient is currently 19w0d . Patients history has been reviewed in great detail including any potential risks. Patient stated she currently has no complaints. Expectations throughout regarding labs, ultrasounds, and appointments have been discussed with the patient in detail. It was reiterated that the patient is to drink 6-8 glasses of water a day, eat 6 small meals a day, do not consume raw or undercooked meat, and [facility]. Patient has been consulted regarding any further do's and don'tsof . Patient voiced understanding and all questions and concerns were answered. Patient voiced that she is considering home . Orders Placed This Encounter Procedures US OB 14+ weeks anatomy scan POCT urinalysis dipstick manually resulted Follow Up: Patient is to return in 4 weeks for routine OB appointment. Documented by Rosalinda Mcclure LPN on behalf of: Jeffrey Gleason DO documented in this encounter Plan of Treatment Upcoming Encounters Date Type Department Care Team (Late st Contact Info) Description 12/05/2024 9:50 AM EDT Routine [facility] [address] [place] [id number] Francy Pollack PA [address] [facility] [address] documented as of this encounter Procedures Procedure Name Priority Date/Time Associated Diagnosis Comments POCT URINALYSIS DIPSTICK Routine 10/03/2024 10:19 AM EDT 19 weeks gestation of ([facility]) Second trimester ([facility]) documented in this encounter Results * US OB 14+ weeks anatomy scan (10/10/2024 9:38 AM EDT) Anatomical Region Laterality Modality Body Ultrasound 10/13/2024 8:21 AM EDT Narrative 10/13/2024 8:21 AM EDT EXAM: US OB 14+ WEEKS ANATOMY SCAN HISTORY: anatomy. COMPARISON: None available. TECHNIQUE: Two-dimensional transabdominal grayscale ultrasound imaging of the pelvis was performed. FINDINGS: Gestation: Single Presentation: Variable Cardiac Activity: 150 beats per minute Placental Location: Anterior with no sonographic abnormalities identified. Distance from Placental Tip to Cervix: 5.5 cm Cervical Length: 3.9 cm Amniotic Fluid: Appears adequate MEASUREMENTS: BPD: 4.0 cm EGA: 18 weeks 2 days HC: 16.0 cm EGA: 18 weeks 6 days AC: 14.2 cm EGA: 19 weeks 4 days FL: 3.0 cm EGA: 19 weeks 3 days HC/AC Ratio: 1.12 The gestational age by today's ultrasound is 19 weeks 0 days (+/- 9 days gestation). Estimated Weight: 289 grams, +/- 43 grams ( 0 lb 10 oz). Weight Percentile for gestational age: 16 % ANATOMY C-Spine: Unremarkable T-Spine: Unremarkable L-Spine: Unremarkable Sacrum: Unremarkable Four Chamber Heart: Unremarkable LVOT: Unremarkable RVOT: Unremarkable Stomach: Unremarkable Kidneys: Unremarkable Bladder: Unremarkable Diaphragm: Unremarkable Cord insertion: Unremarkable Cord vessels: Three Lateral Ventricles: Unremarkable Cerebellum: Unremarkable Cisterna Magna: Unremarkable Posterior Fossa: Unremarkable Right Femur: Unremarkable Left Femur: Unremarkable Right Tib/Fib: Unremarkable Left Tib/Fib: Unremarkable Right Rad/Ulnar: Unremarkable Left Rad/Ulnar: Unremarkable Right Humerus: Unremarkable Left Humerus: Unremarkable Nose/Lips: Unremarkable Profile: Unremarkable Orbits: Unremarkable IMPRESSION: 1. Single, live intrauterine gestation 20 weeks, 0 days by LMP. Today's ultrasound measurements correlate with a gestational age of 19 weeks 0 days. Estimated weight is 289 grams, +/- 43 grams ( 0 lb 10 oz) which correlates to 16 %. PATTIE by today's ultrasound is 03/06/2025. 2. Unremarkable ultrasound of the anatomy. Interpreted by: Electronically signed by CHRISTIAN ANTUNEZ II, MD, PHD at 13-Oct-2024 08:19:45 AM [facility] Procedure Note Christian Antunez MD - 10/13/2024 EXAM: US OB 14+ WEEKS ANATOMY SCAN HISTORY: anatomy. COMPARISON: None available. TECHNIQUE: Two-dimensional transabdominal grayscale ultrasound imaging ofthe pelvis was performed. FINDINGS: Gestation: Single Presentation: Variable Cardiac Activity: 150 beats per minute Placental Location: Anterior with no sonographic abnormalitiesidentified. Distance from Placental Tip to Cervix: 5.5 cm Cervical Length: 3.9 cm Amniotic Fluid: Appears adequate MEASUREMENTS: BPD: 4.0 cm EGA: 18 weeks 2 days HC: 16.0 cm EGA: 18 weeks 6 days AC: 14.2 cm EGA: 19 weeks 4 days FL: 3.0 cm EGA: 19 weeks 3 days HC/AC Ratio: 1.12 The gestational age by today's ultrasound is 19 weeks 0 days (+/- 9 daysgestation). Estimated Weight: 289 grams, +/- 43 grams ( 0 lb 10 oz). Weight Percentile for gestational age: 16 % ANATOMY C-Spine: Unremarkable T-Spine: Unremarkable L-Spine: Unremarkable Sacrum: Unremarkable Four Chamber Heart: Unremarkable LVOT: Unremarkable RVOT: Unremarkable Stomach: Unremarkable Kidneys: Unremarkable Bladder: Unremarkable Diaphragm: Unremarkable Cord insertion: Unremarkable Cord vessels: Three Lateral Ventricles: Unremarkable Cerebellum: Unremarkable Cisterna Magna: Unremarkable Posterior Fossa: Unremarkable Right Femur: Unremarkable Left Femur: Unremarkable Right Tib/Fib: Unremarkable Left Tib/Fib: Unremarkable Right Rad/Ulnar: Unremarkable Left Rad/Ulnar: Unremarkable Right Humerus: Unremarkable Left Humerus: Unremarkable Nose/Lips: Unremarkable Profile: Unremarkable Orbits: Unremarkable IMPRESSION: 1. Single, live intrauterine gestation 20 weeks, 0 days by LMP. Today'sultrasound measurements correlate with a gestational age of 19 weeks 0days. Estimated weight is 289 grams, +/- 43 grams ( 0 lb 10 oz)which correlates to 16 %. PATTIE by today's ultrasound is 03/06/2025. 2. Unremarkable ultrasound of the anatomy. Interpreted by: Electronically signed by CHRISTIAN ANTUNEZ II, MD, PHD [id number] 08:19:45 AM [facility] us Jeffrey Gleason DO IM OB US PROCEDURES Final Resul t * POCT urinalysis dipstick manually resulted (10/03/2024 10:19 AM EDT) Color, UA Yellow Clarity, UA Clear Glucose, UA Negative Negative - 2000(110) ++++ mg/dL Bilirubin, UA Negative Negative - 4(70) +++ mg/dL Ketones, UA Negative Negative - 160(16) ++++ mg/dL Spec Grav, UA 1.010 1 - 1.03 Blood, UA Negative Negative - 50 Moo/mcL pH, UA 7.0 5 - 9 Protein, UA Negative Negative - 2000(20) ++++ mg/dL Urobilinogen, UA 1.0 0.2 - 12 mg/dL Leukocytes, UA Negative Negative - 500+++ Sean/mcL Nitrite, UA Negative Negative - Positive Urine 10/03/2024 10:1 9 AM EDT Jeffrey Gleason DO POINT OF CARE TEST ENTER/EDIT OR DERABLES Final Result documented in this encounter Visit Diagnoses Diagnosis 19 weeks gestation of ([facility]) Second trimester ([facility]) state, incidental Screening, , for anatomic survey ([facility]) Encounter for anatomic survey Screening, , for anatomic survey ([facility]) Encounter for anatomic survey documented in this encounter Care Teams Cmm Operator Relationship Specialty Start Date End Date Mariza Fierro MD [address] [place] [address] PCP - General Internal Medicine 09/06/24 documented as of this encounter
--- OUTSIDE RECORDS SUMMARY | 2024-11-14 09:30 | XMS_ITS | Encounter Summary ---
Author Organization [facility] Address [address] [place] [address] Care Team Providers Care Electromechanical Technician Name Role Phone Mariza Fierro MD Primary Care Provider +1- [phone] Reason for Visit * Reason Comments Routine Visit Encounter Details Date Type Department Care Team (Latest Contact Info) Description 11/14/2024 9:30 AM EDT Routine [facility] [address] [address] [address] Adele Salas NP [address] [facility] [address] [place] [address] Third trimester ([facility]); 25 weeks gestation of ([facility]); Well woman exam with routine gynecological exam; Exposure to STD; Diabetes mellitus screening; Skin infection Social History Tobacco Use Types Packs/Day Years [...] on file documented as of this encounter Progress Notes * Adele Salas NP - 11/14/2024 9:30 AM EDT Reason for Appointment: Patient ID: Oxana Braga is a 29 y.o. female who presents for Routine Visit Patient presents today for Annual Exam., STD Check., and Return OB appointment. MEDICATIONS Current Outpatient Medications Medication Instructions Vit-Fe Fumarate-FA ( VITAMIN PO) Take by mouth ALLERGIES No Known Allergies PROBLEMS Active Ambulatory [...] No family history on file. SURGICAL HISTORY No past surgical history on file. REVIEW OF SYSTEMS Review of Systems: Review of Systems Constitutional: Negative. HENT: Negative. Eyes: Negative. Respiratory: Negative. Cardiovascular: Negative. Gastrointestinal: Negative. Genitourinary: Negative. Musculoskeletal: Negative. Skin: Negative. Complaints of drainage from belly button Neurological: Negative. All other systems reviewed and are negative. Hematological: Negative. Endocrine: Negative. Allergic/Immunologic: Negative. OBJECTIVE Objective: Physical Exam Constitutional: Appearance: Normal appearance. She is well-developed. Genitourinary: Vulva normal. Cardiovascular: Rate and Rhythm: Normal rate and [...] Skin: General: Skin is warm and dry. Comments: Serous drainage from umbilicus. No foul odor or erythema. Will treat with Keflex and cultures obtained Psychiatric: Mood and Affect: Mood normal. Behavior: Behavior normal. Vitals and nursing note reviewed. Exam conducted with a pharmacy district manager present. Vitals: There is no height or weight on file to calculate BMI. BP: Patient's last menstrual period was 05/23/2024. ASSESSMENT & PLAN ICD-10-CM 1. Third trimester ([facility]) Z34.93 POCT urinalysis dipstick manually resulted 2. 25 weeks gestation of ([facility]) Z3A.25 3. Well woman exam with routine gynecological exam Z01.419 Pap Smear HPV DNA probe, amplified 4. Exposure to STD Z20.2 SURESWAB(R) ADVANCED VAGINITIS PLUS, TMA CHLAMYDIA TRACHOMATIS (GENITO/STI) Neisseria gonorrhea DNA probe, direct 5. Diabetes mellitus screening Z13.1 CBC Glucose tolerance, 1 hour CBC Glucose tolerance, 1 hour Return OB/Annual Exam: Patient presents today for the annual exam/routine obstetrics appointment. Patient is currently 25w0d . Patient is doing well and states she has no complaints. Pap/cultures was obtained without difficulty and patient was given 1-hr glucose/CBC order to have obtained. Patient did refuse the 1-hr glucose order and requested another way around the 1-hr. Pt states she has no time to sit for an hour. Pt states she works 2 jobs, 7 days a week and odd hours. Adele Salas NP gave patient an A1C/CBC to obtain at [facility] and [facility]. Pt complained of have some kind of puss coming out of her belly button and at times a crusty outside layer from the puss. Pt states she uses dial soap to maintain it clean however, it continues to seep out some type of puss/fluid. Adele Salas NP took a cx from the belly button and sent it out to lab. Pt was made aware that the cx will take a few days to come back. For the meantime pt will be put on Keflex 500 mg BID for 10 days. Rx was sent and [facility]. Orders Placed This Encounter Procedures HPV DNA probe, amplified CHLAMYDIA TRACHOMATIS (GENITO/STI) Neisseria gonorrhea DNA probe, direct CBC Glucose tolerance, 1 hour POCT urinalysis dipstick manually resulted Follow Up: Patient is to return to our office in 3 weeks for routine OB appointment Documented by Rona Choi MA on behalf of: Adele Salas NP documented in this encounter Plan of Treatment Upcoming Encounters Date Type Department Care Team (Late st Contact Info) Description 12/05/2024 9:50 AM EDT Routine [facility] [address] [place] [phone] Francy Pollack PA [address] [facility] [address] [place] [address] Scheduled Orders Name Type Priority Associated Diagnoses Orde r Schedule SURESWAB(R) ADVANCED VAGINITIS PLUS, TMA Pathology and Cytology Routine Exposure to STD Ordered: 11/14/2024 CHLAMYDIA TRACHOMATIS (GENITO/STI) Lab Routine Exposure to STD Ordered: 11/14/2024 Neisseria gonorrhea DNA probe, direct Lab Routine Exposure to STD Ordered: 11/14/2024 Pap Smear Pathology and Cytology Routine Well woman exam with routine gynecological exam Ordered: 11/14/2024 HPV DNA probe, amplified Microbiology Routine Well woman exam with routine gynecological exam Ordered: 11/14/2024 Hemoglobin A1c Lab Routine Diabetes mellitus screening Ordered: 11/14/2024 CBC and differential Lab Routine Diabetes mellitus screening Ordered: 11/14/2024 Anaerobic culture Microbiology Routine Skin infection Expected: 11/14/2024 (Approximate), Expires: 11/14/2025 Aerobic culture Microbiology Routine Skin infection Ordered: 11/14/2024 documented as of this encounter Procedures Procedure Name Priority Date/Time Associated Diagnosis Comments POCT URINALYSIS DIPSTICK Routine 11/14/2024 10:31 AM EDT Third trimester ([facility]) documented in this encounter Results * POCT urinalysis dipstick manually resulted (11/14/2024 10:31 AM EDT) Color, UA Yellow Clarity, UA Clear Glucose, UA Negative Negative - 2000(110) ++++ mg/dL Bilirubin, UA Negative Negative - 4(70) +++ mg/dL Ketones, UA Negative Negative - 160(16) ++++ mg/dL Spec Grav, UA 1.010 1 - 1.03 Blood, UA Negative Negative - 50 Moo/mcL pH, UA 6.0 5 - 9 Protein, UA Negative Negative - 2000(20) ++++ mg/dL Urobilinogen, UA 1.0 0.2 - 12 mg/dL Leukocytes, UA Negative Negative - 500+++ Sean/mcL Nitrite, UA Negative Negative - Positive Urine 11/14/2024 10:3 1 AM EDT Adele Salas NP POINT OF CARE TEST ENTER/EDIT ORDERABLES Final Result documented in this encounter Visit Diagnoses Diagnosis Third trimester ([facility]) state, incidental 25 weeks gestation of ([facility]) Well woman exam with routine gynecological exam Routine gynecological examination Exposure to STD Diabetes mellitus screening Screening for diabetes mellitus Skin infection Unspecified local infection of skin and subcutaneous tissue documented in this encounter Care Teams Electromechanical Technician Relationship Specialty Start Date End Date Mariza Fierro MD [address] [place] [phone] PCP - General Internal Medicine 09/06/24 documented as of this encounter
--- OUTSIDE RECORDS SUMMARY | 2024-11-14 19:23 | XMS_ITS | Encounter Summary ---
Author Organization [facility] Address [address] [facility] [place] [address] Care Team Providers Care Vp Integration Name Role Phone Mariza Fierro MD Primary Care Provider +1- [phone] Encounter Details Date Type Department Care Team (Late Contact Info) Description 11/14/2024 Bamboo flowsheet BETHEL SRINIVASAN [address] [place] [address] Adele Salas NP [address] [place] [address] Social History Tobacco Use Types Packs/Day [...] 9:50 AM EDT Routine [facility] [address] [place] [address] Francy Pollack PA [address] [place], [place] [id number] documented as of this encounter Visit Diagnoses Not on filedocumented in this encounter Care Teams Vp Integration Relationship Specialty Start Date End Date Mariza Fierro MD [address] [place] [address] PCP - General Internal Medicine 09/06/24 documented as of this encounter
--- OUTSIDE RECORDS SUMMARY | 2024-11-14 19:24 | XMS_ITS | Encounter Summary ---
Author Organization [facility] Address [address] [place] [address] Care Team Providers Care Ribber Name Role Phone Mariza Fierro MD Primary Care Provider +1- [phone] Encounter Details Date Type Department Care Team (Late Contact Info) Description 09/06/2024 Abstract BETHEL SRINIVASAN [address] [place] [address] Jeffrey Gleason DO [address] [place], [facility] Social History Tobacco Use Types Packs/Day Years [...] 9:50 AM EDT Routine BETHEL SRINIVASAN [address] [place] [address] Francy Pollack PA [address] [place], [facility]11 documented as of this encounter Visit Diagnoses Not on filedocumented in this encounter Care Teams Ribber Relationship Specialty Start Date End Date Mariza Fierro MD [address] [place] [id number] PCP - General Internal Medicine 09/06/24 documented as of this encounter
--- OUTSIDE RECORDS SUMMARY | 2024-11-14 19:24 | XMS_ITS | Clinical Summary ---
Author Organization [facility] Healthcare Address [address] [facility] [place] [address] Care Team Providers Care Concrete Spreader Name Role Phone Mariza Fierro MD Primary Care Provider +1- [phone] Allergies No known active allergies Medications Vit-Fe Fumarate-FA ( VITAMIN PO) Take by mouth Active cephalexin (Keflex) 500 MG capsuleIndicati ons:Skin infection Take 1 capsule (500 mg) by mouth in the morning and 1 capsule (500 mg) before bedtime. Do all this for 10 days. 20 capsule 11/14/2024 Active Encounters Date Type Department Care Team Description 11/14/2024 9:30 AM EDT Routine [facility] [address] [place] [address] Adele Salas NP Third trimester ([facility]); 25 weeks gestation of ([facility]); Well woman exam with routine gynecological exam; Exposure to STD; Diabetes mellitus screening; Skin infection 11/14/2024 Clinisync Result Encounter [facility] External Department Unsolicited Adele Salas NP 11/14/2024 Bamboo flowsheet [facility] SRINIVASAN [address] [place] [address] Adele Salas NP 11/14/2024 Travel 11/07/2024 Patient Outreach [facility] [address] [place] [phone] Francy Ovalle LPN 11/06/2024 [facility] [address] [place] [address] Francy Ovalle LPN 10/10/2024 8:30 AM EDT [place] [address] Screening, , for anatomic survey ([facility]) 10/03/2024 10:10 [place] [address] Jeffrey Gleason DO 19 weeks gestation of ([facility]); Second trimester ([facility]); Screening, , for anatomic survey ([facility]) 10/03/2024 [place] [address] Jeffrey Gleason DO 09/06/2024 10:00 AM [place] [address] GA: 15w1d 09/06/2024 9:30 AM EDT [place] [address] Missed menses 09/06/2024 [place] [address] Jeffrey Gleason DO 09/06/2024 Clinisync Result Encounter [...] AM EDT Routine [facility] [address] [place] [phone] Francy Pollack PA [address] [facility] [place] [address] Procedures Procedure Name Priority Date/Time Associated Diagnosis Comments MLR HEMOGLOBIN A1C Routine 11/14/2024 10 :43 AM EDT ALL CBC WITH AUTO DIFF Routine 11/14/2024 10:43 AM EDT POCT URINALYSIS DIPSTICK Routine 11/14/2024 10:31 AM EDT Third trimester ([facility]) US OB 14+ WEEKS ANATOMY SCAN Routine 10/10/2024 9:38 AM EDT Screening, , for anatomic survey ([facility]) CULTURE, URINE, ROUTINE Routine 10/07/2024 8:14 AM EDT Missed menses POCT URINALYSIS DIPSTICK Routine 10/03/2024 10:19 AM EDT 19 weeks gestation of ([facility]) Second trimester ([facility]) HBSAG SCREEN Routine 09/06/2024 10:40 AM EDT [...] menses from Last 3 Months Results * MLR HEMOGLOBIN A1C (11/14/2024 10:43 AM EDT) Only the most recent of2 resultswithin the time period is included. GLYCOHEMOGLOBIN A1C 5.1 4.5 - 6.2 % [facility] Comment: ADA RECOMMENDED LIMIT 4.0 - 6.0 ADA THERAPEUTIC TARGET < 7.0 ACTION SUGGESTED > 7.0 ESTIMATED AVERAGE GLUCOSE 100 mg/dL [facility] 11/14/2024 10:4 3 AM EDT 11/14/2024 10:43 AM EDT Narrative [facility] - 11/14/2024 11:12 AM EDT us Adele Salas NP [facility] Final Result [facility] * (ABNORMAL) ALL CBC WITH AUTO DIFF (11/14/2024 10:43 AM EDT) Only the most recent of2 resultswithin the time period is included. [facility] Signature TBH WBC 10.1 4.0 - 11.0 10 3/uL TBH TBH RBC 3.46(L) 4.20 - 5.40 10 6/uL TBH TBH HGB 11.3(L) 12.0 - 16.0 g/dL TBH TBH HCT 33.9(L) 36.0 - 48.0 % TBH TBH MCV 98.0 81.0 - 99.0 fL TBH TBH MCH 32.7 26.7 - 34.0 pg TBH TBH MCHC 33.3 29.9 - 35.2 g/dL TBH TBH RDW 13.2 11.0 - 15.0 % TBH TBH PLT 247 150 - 450 10 3/uL TBH TBH MPV 9.0(L) 9.5 - 13.5 fL TBH NEUTROPHILS PERCENT AUTO 72.8 43.0 - 75.0 % TBH LYMPHOCYTES PERCENT AUTO 17.2(L) 20.5 - 60.0 % TBH MONOCYTES PERCENT AUTO 8.8 1.7 - 12.0 % TBH TBH EO % 0.5(L) 0.9 - 7.0 % TBH BASOPHILS PERCENT AUTO 0.3 0.2 - 2.0 % TBH IMMATURE GRANULOCYTES PCT AUTO 0.4 0.0 - 0.5 % TBH NEUTROPHILS ABSOLUTE AUTO 7.4(H) 1.4 - 6.5 10 3/uL TBH LYMPHOCYTES ABSOLUTE AUTO 1.7 1.2 - 3.8 10 3/uL TBH MONOCYTES ABSOLUTE AUTO 0.9(H) 0.3 - 0.8 10 3/uL TBH TBH EO # 0.1 0.0 - 0.7 10 3/uL TBH BASOPHILS ABSOLUTE AUTO 0.0 0.0 - 0.1 10 3/uL TBH IMMATURE GRANULOCYTES ABS AUTO 0.04(H) 0.00 - 0.03 10 3/uL TBH 11/14/2024 10:4 3 AM EDT 11/14/2024 10:43 AM EDT Narrative [facility] - 11/14/2024 10:47 AM EDT us Adele Salas NP [facility] Final Result [facility] * POCT urinalysis dipstick manually resulted (11/14/2024 [...] Positive Urine 11/14/2024 10:3 1 AM EDT us Adele Salas NP POINT OF CARE TEST [...] II, MD, PHD at 13-Oct-2024 08:19:45 AM [facility] Procedure Note Christian Antunez MD - [...] CHRISTIAN ANTUNEZ II, MD, PHD 08:19:45 AM [facility] us Jeffrey Victorino DO IMG OB US PROCEDURES Final Resul t * Urine culture (10/07/2024 8:14 AM EDT) Urine Urine specimen obtained by clean catch procedure / Unknown us Jeffrey Victorino DO LAB MICROBIOLOGY - GENERAL ORDER ROSS Final Result EXTERNAL LAB * HBSAG SCREEN (09/06/2024 10:40 AM EDT) HBSAG SCREEN Negative Negative TBH Comment: Performed at: - [facility] [id number] Strategic Partnership Specialist: Raheel West PhD, Phone: [phone] 09/06/2024 10:4 0 AM EDT 09/06/2024 10:43 AM EDT Narrative [facility] - 09/07/2024 11:08 AM EDT Jeffrey Victorino DO LAB BLOOD ORDERABLES Final Resul t Performing Organization Address [facility] Co de Phone Number [facility] * RAPID PLASMA REAGIN, QUANT (09/06/2024 10:40 AM EDT) RAPID PLASMA REAGIN, QUANT Non Reactive NonRea<1: 1 titer [facility] Comment: Please Note: This test does not meet current guidelines for screening and diagnosis of syphilis. This test is intended for following treatment response in patients being treated for syphilis infection. To screen for syphilis infection, a reflex cascade that includes both RPR and a treponema-specific assay should be utilized, such as Treponema pallidum (Syphilis) Screening [place] (014223) or Rapid Plasma Reagin (RPR) Test With Reflex to Quantitative RPR and Confirmatory Treponema pallidum Antibodies (022963). Performed at: [facility] [id number] Strategic Partnership Specialist: Raheel West PhD, Phone: [phone] 09/06/2024 10:4 0 AM EDT 09/06/2024 10:43 AM EDT Narrative [facility] - 09/07/2024 11:08 AM EDT Jeffrey Victorino DO LAB BLOOD ORDERABLES Final Resul t Performing Organization Address City/[facility] Co de Phone Number [facility] * HIV AB/P24 AG WITH REFLEX (09/06/2024 10:40 AM EDT) HIV AB/P24 AG SCREEN Non Reactive Non Reactive [facility] Comment: HIV-1/HIV-2 antibodies and HIV-1 p24 antigen were NOT detected. There is no laboratory evidence of HIV infection. HIV Negative Performed at: [facility] [id number] Strategic Partnership Specialist: Raheel West PhD, Phone: [phone] 09/06/2024 10:4 0 AM EDT 09/06/2024 10:43 AM EDT Narrative [facility] - 09/07/2024 5:07 AM EDT [facility] LAB BLOOD ORDERABLES Final Resul t Performing Organization Address [facility] Co de Phone Number [facility] * HCV ANTIBODY RFX TO QUANT PCR (09/06/2024 10:40 AM EDT) [facility] HCV AB Non Reactive Non Reactive [facility] INTERPRETATION: Comment . TB Comment: Not infected with HCV unless early or acute infection is suspected (which may be delayed in an immunocompromised individual), or other evidence exists to indicate HCV infection. 09/06/2024 10:4 0 AM EDT 09/06/2024 10:43 AM EDT Narrative [facility] - 09/07/2024 5:07 AM EDT [facility] LAB BLOOD ORDERABLES Final Resul t Performing Organization Address [facility] de Phone Number [facility] * ALL TYPE AND SCREEN (09/06/2024 10:40 AM EDT) [facility] BLOOD TYPE O Positive TBH ANTIBODY SCREEN NEGATIVE TB 09/06/2024 10:4 0 AM EDT 09/06/2024 10:43 AM EDT [facility] - 09/06/2024 11:56 AM EDT [facility] , Jeffrey Victorino DO CLINISYNC Final Result Performing Organization Address City/[facility] de Phone Number [facility] * ALL RUBELLA IGG AB (09/06/2024 10:40 AM EDT) [facility] RUBELLA ANTIBODIES, IGG 1.74 Immune >0.99 index TBH Comment: Non-immune <0.90 Equivocal 0.90 - 0.99 Immune >0.99 Performed at: [address] [id number] Strategic Partnership Specialist: Raheel West PhD, Phone: [phone] 09/06/2024 10:4 0 AM EDT 09/06/2024 10:43 AM EDT Narrative [facility] - 09/07/2024 5:07 AM EDT Jeffrey Victorino DO CLINISYNC Final Result [facility] * (ABNORMAL) TBH DRUG SCREEN RAPID (URINE) (09/06/2024 10:33 AM EDT) Pathologist [facility] CANNABINOID SCREEN URINE POSITIVE(A) NEGATIVE TBH PHENCYCLIDINE [...] EDT Jeffrey Victorino DO CLINISYNC Final Result [facility] * (ABNORMAL) CANNABINOID CONF, MS, UR (09/06/2024 10:33 AM EDT) CANNABINOID Positive(A ) . TBH CARBOXY THC CONF, MS, UR 112 Cutoff=10 ng/mL TBH Comment: Performed at: - [facility] [address] [place], [place] [id number] Strategic Partnership Specialist: María Myers PhD, Phone: [phone] 09/06/2024 10:3 3 AM EDT 09/06/2024 11:13 AM EDT Narrative [facility] - 09/10/2024 4:11 PM EDT us Jeffrey Victorino DO LAB BLOOD ORDERABLES Final Resul t [facility] * (ABNORMAL) POCT , urine manually resulted [...] amniotic fluid volume. Morphology is grossly normal. [place] rump length, 9.3 cm, 15 weeks, 2 [...] and amniotic fluidvolume. Morphology is grossly normal. [place] rump length, 9.3 cm, 15weeks, 2 day. [...] Jason Esquivel MD us Jeffrey Gleason DO [facility] OB US PROCEDURES Final Resul t from Last 3 Months Insurance [employer] Care Teams Concrete Spreader Relationship Specialty Start Date End Date Mariza Fierro MD [address] [place] [address] PCP - General Internal Medicine 09/06/24
--- OUTSIDE RECORDS SUMMARY | 2024-11-14 19:24 | XMS_ITS | Encounter Summary ---
Author Organization [facility] Address [address] [place] [address] Care Team Providers Care Metal Buggy Operator Name Role Phone Mariza Fierro MD Primary Care Provider +1- [phone] Encounter Details Date Type Department Care Team (Late st Contact Info) Description 11/07/2024 Patient Outreach [facility] [address] [place] [phone] Francy Ovalle LPN [address] [place] [address] Social History Tobacco Use Types Packs/Day Years [...] AM EDT Routine [facility] [address] [address] Francy Pollack PA [address] [facility] [place] [address] documented as of this encounter Visit Diagnoses Not on filedocumented in this encounter Care Teams Metal Buggy Operator Relationship Specialty Start Date End Date Mariza Fierro MD [address] [place] [phone] PCP - General Internal Medicine 09/06/24 documented as of this encounter
--- OUTSIDE RECORDS SUMMARY | 2024-11-14 19:24 | XMS_ITS | Encounter Summary ---
Author Organization [facility] Address [address] [facility] [place] [place] [address] Care Team Providers Care Scales Inspector Name Role Phone Mariza Fierro MD Primary Care Provider +1- [phone] Encounter Details Date Type Department Care Team (Late st Contact Info) Description 11/14/2024 Clinisync Result Encounter [facility] External Department Unsolicited Adele Salas, KARTIK [address] [place] [address] Social History Tobacco Use Types Packs/Day [...] 12/05/2024 9:50 AM EDT Routine [facility] [address] [place] [address] Francy Pollack PA [address] [place] [address] documented as of this encounter Procedures Procedure Name Priority Date/Time Associated Diagnosis Comments MLR HEMOGLOBIN A1C Routine 11/14/2024 10 :43 AM EDT ALL CBC WITH AUTO DIFF Routine 11/14/2024 10:43 AM EDT documented in this encounter Results * MLR HEMOGLOBIN A1C (11/14/2024 10:43 AM EDT) Pathologist [facility] GLYCOHEMOGLOBIN A1C 5.1 4.5 - 6.2 % TB Comment: ADA RECOMMENDED LIMIT 4.0 - 6.0 ADA THERAPEUTIC TARGET < 7.0 ACTION SUGGESTED > 7.0 ESTIMATED AVERAGE GLUCOSE 100 mg/dL TB 11/14/2024 10:4 3 AM EDT 11/14/2024 10:43 AM EDT Narrative [facility] - 11/14/2024 11:12 AM EDT Adele Salas NP CLIN[facility]NC Final Result [facility] * (ABNORMAL) ALL CBC WITH AUTO DIFF (11/14/2024 10:43 AM EDT) Pathologist [facility] TB WBC 10.1 4.0 - 11.0 10 3/uL TBH TB RBC 3.46(L) 4.20 - 5.40 10 6/uL TBH TB HGB 11.3(L) 12.0 - 16.0 g/dL TB TB HCT 33.9(L) 36.0 - 48.0 % TBH TB MCV 98.0 81.0 - 99.0 fL TBH TB MCH 32.7 26.7 - 34.0 pg TBH TB MCHC 33.3 29.9 - 35.2 g/dL TB TB RDW 13.2 11.0 - 15.0 % TBH TB PLT 247 150 - 450 10 3/uL TBH TB MPV 9.0(L) 9.5 - 13.5 fL TBH [...] us Adele Salas NP CLINISYNC Final Result Performing Organization Address City/State/[facility] Co de Phone Number [facility] documented in this encounter Visit Diagnoses Not on filedocumented in this encounter Care Teams Scales Inspector Relationship Specialty Start Date End Date Mariza Fierro MD [address] [place] [phone] PCP - General Internal Medicine 09/06/24 documented as of this encounter
--- OUTSIDE RECORDS SUMMARY | 2024-11-14 19:24 | XMS_ITS ---
Author Organization [facility] Healthcare Address [address] [place] [address] Care Team Providers Care Cleaning Attendant Name Role Phone Mariza Fierro MD Primary Care Provider +1- [phone] [facility] ([facility]) Status:Enrolled (Active) Start date:11/04/2024 Enrollment date:11/07/2024 Enrollment reason:Identified by Health Plan Case Team Name Relationship Phone Francy Ovalle LPN(Responsible Staff) Licensed Prac tical Nurse [phone] Continued Care and Services Coordination
--- OUTSIDE RECORDS SUMMARY | 2024-11-14 19:24 | XMS_ITS | Encounter Summary ---
Author Organization [facility] Address [address] [place] [address] Care Team Providers Care Support Representative Name Role Phone Mariza Fierro MD Primary Care Provider +1- [phone] Encounter Details Date Type Department Care Team (Late st Contact Info) Description 11/06/2024 Abstract [facility] [address] [place] [phone] Francy Ovalle LPN [address] [place] [address] Social History Tobacco Use Types Packs/Day Years [...] BETHEL SRINIVASAN [address] [place] [address] Francy Pollack PA [address] [place] [address] documented as of this encounter Visit Diagnoses Not on filedocumented in this encounter Care Teams Support Representative Relationship Specialty Start Date End Date Mariza Fierro MD [address] [place] [phone] PCP - General Internal Medicine 09/06/24 documented as of this encounter
== END 2024-11-14 19:22 | disposition home or self-care (01) ==
LOC: LAB 19:21
PROVIDERS: Visit Provider Nurse Practitioner Family
DX: Z01.419 Encounter for gynecological examination (general) (routine) without abnormal findings (principal); L08.9 Local infection of the skin and subcutaneous tissue, unspecified; Z13.1 Encounter for screening for diabetes mellitus
CPT/HCPCS: 36415; 83036; 85025; 87070; 87075; 87624; 88175